=== PATIENT | male | born 1985 | race Caucasian/White ===

== ENCOUNTER 2023-02-08 08:03 | Day surgery (SDC) | payer SELFPAY ==
[2023-02-05 10:23] LABS: BASOPHILS % (AUTO) 0.5 % (0.0-2.0); EOSINOPHILS # (AUTO) 0.1 K/uL (0-0.4); EOSINOPHILS % (AUTO) 1.3 % (0.0-4.0); HEMATOCRIT 46.3 % (36-52); HEMOGLOBIN 15.9 g/dL (12.0-18.0); LYMPHOCYTES # (AUTO) 2.2 K/uL (2.0-11.5); LYMPHOCYTES % (AUTO) 35.4 % (20.5-51.1); MEAN CORPUSCULAR HEMOGLOBIN 30 pg (27-31); MEAN CORPUSCULAR HGB CONC 34 g/dL (33-37); MEAN CORPUSCULAR VOLUME 87.6 fL (80-94); MONOCYTES # (AUTO) 0.5 K/uL (0.8-1.0); MONOCYTES % (AUTO) 7.4 % (1.7-9.3); NEUTROPHILS # (AUTO) 3.4 K/uL (1.8-7.7); NEUTROPHILS % (AUTO) 55.4 % (42.2-75.2); PLATELET COUNT (AUTO) 244 K/uL (140-450); RED BLOOD CELL COUNT(AUTO) 5.29 MIL/uL (4.20-6.10); RED CELL DISTRIBUTION WIDTH 12.8 % (11.6-13.7); WHITE BLOOD COUNT (AUTO) 6.1 K/uL (4.8-10.8)
[2023-02-05 10:59] LABS: ALBUMIN 3.8 g/dL (3.4-5.0); ANION GAP 6.8 (8-16); CALCIUM 8.6 mg/dL (8.5-10.1); POTASSIUM 3.8 mmol/L (3.5-5.1); TOTAL BILIRUBIN 0.6 mg/dL (0.0-1.0); TOTAL PROTEIN, SERUM 7.4 g/dL (6.4-8.2)
[~2023-02-08] VITALS: Ht 172.7 cm; Wt 90.7 kg
[2023-02-08] MEDS ORDERED: ceFAZolin 1,000 MG VIAL ONE (09:33)
[2023-02-08] MEDS ORDERED: LIDOCAINE/EPI MPF 1%1:200000 30 ML VIAL INJ ONE (09:36)
[2023-02-08] MEDS ORDERED: ACET-8905 PO (09:37)
[2023-02-08] MEDS ORDERED: fentaNYL citrate 0.05 MG/ML VIAL ONE (09:54)
[2023-02-08] MEDS ORDERED: ROCURONIUM 50 MG/5 ML VIAL IV ONE (10:20)
[2023-02-08] MEDS ORDERED: SUCCINYLCHOLINE CHLORIDE 200 MG/10 ML VIAL IVP ONE (10:20)
[2023-02-08] MEDS ORDERED: PROPOFOL 200 MG/20 ML VIAL IV ONE (10:20)
[2023-02-08] MEDS ORDERED: KETOROLAC 30 MG/ML VIAL ONE (10:21)
[2023-02-08] MEDS ORDERED: ONDANSETRON 4 MG/2 ML VIAL ONE (10:21)
[2023-02-08] MEDS ORDERED: GLYCOPYRROLATE 0.2 MG/ML VIAL ONE ×5 (11:17)
[2023-02-08] MEDS ORDERED: NEOSTIGMINE 1:1000 10 MG/10 ML VIAL ONE ×2 (11:17)
[2023-02-08] MEDS ORDERED: LACTATED RINGERS 1,000 ML IV SCH (11:25)
[2023-02-08] MEDS ORDERED: HYDROmorphone PFS 2 MG/ML SYR ONE ×2 (11:25→12:16)
[2023-02-08] MEDS ORDERED: LABETALOL 20 MG/4 ML VIAL IVP PRN (11:25)
[2023-02-08] MEDS: HYDROmorphone 1 MG/ML AMP IVP PRN ×6 (11:25→12:52)
[2023-02-08] MEDS ORDERED: hydrALAZINE 20 MG/ML VIAL IVP PRN (11:25)
[2023-02-08] MEDS ORDERED: METOCLOPRAMIDE 10 MG/2 ML INJ VIAL IVP PRN (11:25)
[2023-02-08] MEDS ORDERED: MORPHINE SULFATE 2 MG/ML SYR IVP PRN (11:40)
[2023-02-08] MEDS ORDERED: ONDANSETRON 4 MG/2 ML VIAL IV PRN (11:40)
[2023-02-08] MEDS ORDERED: MORPHINE SULFATE 4 MG/ML SYR IV PRN (11:40)
[2023-02-08] MEDS ORDERED: HYDROmorphone 1 MG/ML AMP IVP PRN (11:40)
[2023-02-08] MEDS ORDERED: HYDR-5080 PO (13:01)
== END 2023-02-08 13:20 | disposition home or self-care (01) ==
LOC: MDS 08:03 → MMU 08:05 → MDS 13:20
PROVIDERS: ATTEND Surgery
DX: K42.9 Umbilical hernia without obstruction or gangrene (principal); F17.210 Nicotine dependence, cigarettes, uncomplicated; Z79.899 Other long term (current) drug therapy
CPT/HCPCS: 36415; 49591; 71045; 80053; 85025; C1781; J0330; J0690; J1170; J1885; J2001; J2405; J2704; J2710; J3010; J3490; J7060; J7120